=== PATIENT | male | born 1940 | race Caucasian/White ===

== ENCOUNTER 2018-11-02 08:41 | Inpatient (IN) ==
[2018-11-02] MEDS ORDERED: ONDANSETRON 4 MG/2 ML VIAL IV STA (09:06)
[2018-11-02] MEDS ORDERED: hydrALAZINE 20 MG/1 ML VIAL IV STA ×2 (09:06→10:02)
[2018-11-02 09:30] LABS: Basophils # 0.1 10*3/uL (0.0-0.2); Basophils % 0.5 % (0.0-0.8); Eosinophils # 0.1 10*3/uL (0.0-0.87); Eosinophils % 1.2 % (0.00-10.9); Hematocrit 43.9 VOL% (42.0-52.0); Hemoglobin 14.1 GM/DL (14.0-18.0); Immature Granulocytes % 0.6 %; Immature Granulocytes Absolute 0.06 #; Lymphocytes # 1.9 10*3/uL (1.4-4.0); Lymphocytes % 18.6 % (21.2-54.2); Mean Corpuscular HGB Conc 32.1 GM/DL (32-36); Mean Corpuscular Hemoglobin 26 PG (27-34); Mean Corpuscular Volume 81.9 FL (87-102); Mean Platelet Volume 10.6 FL (9.6-12.0); Monocytes # 0.8 10*3/uL (0.11-0.8); Monocytes % 7.5 % (1.7-12.7); Neutrophils # 7.4 10*3/uL (1.4-7.4); Neutrophils % 71.6 % (38.7-73.9); Platelet Count 177 T/CUMM (130-400); Red Blood Count 5.36 MC/CUMM (3.8-5.5); Red Cell Distribution Width 14.2 % (9.3-17.3); White Blood Count 10.3 T/CUMM (4-12)
[2018-11-02 09:35] LABS: INR 1.1; PT Patient Result 11.9 SECS; Partial Thromboplastin Time 28.9 SECS (0-40)
[2018-11-02 09:41] LABS: Apearance,Urine CLEAR (Clear); Bilirubin,Urine Negative (Negative); Blood, Urine Small mg/dL (Negative); Glucose,Urine (UA) Negative (Negative); Ketones,Urine Negative (Negative); Mucus,Urine Occasional /LPF (Occasional); Nitrite,Urine Negative (Negative); Protein,Urine 30 MG/DL; RBC,Urine 1 /HPF (0-4); Urine Color Yellow (Yellow); Urine Specific Gravity 1.006 (1.001-1.035); Urine Urobilinogen < 2.0 EU/DL (0.2-1.0); WBC,Urine <1 /HPF (0-6)
[2018-11-02 09:50] LABS: Alanine Aminotransferase 20 U/L (16-61); Albumin 3.7 G/DL (3.4-5.0); Alkaline Phosphatase 60 U/L (45-117); Aspartate Amino Transferase 14 U/L (0-37); Blood Urea Nitrogen 15 MG/DL (7-18); Calcium 8.3 MG/DL (8.5-10.1); Glucose 123 MG/DL (74-106); Osmolality,Calculated 282.3 MOS/KG (273-304); Potassium 3.6 MMOL/L (3.5-5.1); Sodium 141 MMOL/L (136-145); Total Protein 7.4 G/DL (6.4-8.3); Troponin I < 0.015 NG/ML (0.00-0.045)
[2018-11-02 09:56] LABS: Barbiturates Screen,Urine Negative (Negative); Benzodiazepines Screen,Urine Negative (Negative); Cannabinoid Screen,Urine Negative (Negative); Opiate Screen,Urine Negative (Negative); Phencyclidine Screen,Urine Negative (Negative)
[2018-11-02] MEDS ORDERED: MORPHINE 4 MG/1 ML VIAL IV PRN (10:45)
[2018-11-02] MEDS ORDERED: GLUCAGON 1 MG VIAL IM PRN (10:57)
[2018-11-02] MEDS ORDERED: DEXTROSE 50% 25 GM/50 ML VIAL IV PRN (10:57)
[2018-11-02] MEDS ORDERED: ENOXAPARIN 40 MG/0.4 ML SYRINGE SUBCUT SCH ×2 (11:00→12:00)
[2018-11-02] MEDS ORDERED: CLOPIDOGREL 75 MG TABLET PO SCH (11:00)
[2018-11-02 11:21] LABS: Risk Ratio 3.87; VLDL CHOLESTEROL 24.8 MG/DL
[2018-11-02] MEDS: INSULIN LISPRO 100 UNIT/ML SUBCUT SCH ×2 (15:41→16:36)
[2018-11-02] MEDS ORDERED: INFLUENZA VIRUS VACCINE 0.5 ML SYRINGE IM ONE (15:42)
[2018-11-02] MEDS: SODIUM CHLORIDE 0.9% 1,000 ML IV SCH (16:40)
[2018-11-02] MEDS: PANTOPRAZOLE 40 MG VIAL IV SCH (17:40)
[2018-11-02] MEDS: HEPARIN DRIP 25,000 UNITS/500 ML PREMIX IV SCH (17:56)
[2018-11-02] MEDS: ATORVASTATIN 40 MG TABLET PO SCH (20:04)
[2018-11-03] MEDS: SODIUM CHLORIDE 0.9% 1,000 ML IV SCH ×3 (00:27→16:48)
[2018-11-03] MEDS: METOPROLOL TARTRATE 5 MG/5 ML VIAL IV PRN ×2 (00:28→05:13)
[2018-11-03 01:00] LABS: Osmolality,Calculated 277.5 MOS/KG (273-304); Thyroid Stimulating Hormone 0.85 uIU/ml (0.358-3.74)
[2018-11-03 01:14] LABS: Basophils # 0.1 10*3/uL (0.0-0.2); Basophils % 0.4 % (0.0-0.8); Eosinophils % 0.3 % (0.00-10.9); Hematocrit 39.9 VOL% (42.0-52.0); Hemoglobin 13.1 GM/DL (14.0-18.0); Immature Granulocytes % 0.3 %; Immature Granulocytes Absolute 0.04 #; Lymphocytes # 2.2 10*3/uL (1.4-4.0); Lymphocytes % 19.5 % (21.2-54.2); Mean Corpuscular HGB Conc 32.8 GM/DL (32-36); Mean Corpuscular Hemoglobin 27 PG (27-34); Mean Corpuscular Volume 82.1 FL (87-102); Mean Platelet Volume 10.8 FL (9.6-12.0); Monocytes % 8.8 % (1.7-12.7); Neutrophils # 8.1 10*3/uL (1.4-7.4); Neutrophils % 70.7 % (38.7-73.9); Platelet Count 180 T/CUMM (130-400); Red Blood Count 4.86 MC/CUMM (3.8-5.5); Red Cell Distribution Width 14.4 % (9.3-17.3); White Blood Count 11.5 T/CUMM (4-12)
[2018-11-03 01:24] LABS: INR 1.1; PT Patient Result 12.2 SECS; Partial Thromboplastin Time 29.9 SECS (0-40)
[2018-11-03] MEDS ORDERED: MAGNESIUM SULF RIDER 2 GM in PREMIX 1 EACH IV PRN (01:24)
[2018-11-03] MEDS ORDERED: MAGNESIUM SULF RIDER 4 GM in PREMIX 1 EACH IV PRN (01:24)
[2018-11-03] MEDS: HEPARIN 5,000 UNIT/1 ML VIAL IV PRN ×2 (01:56→16:49)
[2018-11-03] MEDS ORDERED: POTASSIUM CHLORIDE INJ 50 MEQ in SODIUM CHLORIDE 0.9% 475 ML IV SCH (02:00)
[2018-11-03 06:19] LABS: INR 1.1
[2018-11-03 06:20] LABS: Partial Thromboplastin Time 42.5 SECS (0-40)
[2018-11-03] MEDS ORDERED: hydrALAZINE 20 MG/1 ML VIAL IV PRN (08:33)
[2018-11-03] MEDS ORDERED: SIMVASTATIN 40 MG TABLET PO SCH (09:00)
[2018-11-03] MEDS: PANTOPRAZOLE 40 MG VIAL IV SCH (09:15)
[2018-11-03] MEDS: INSULIN LISPRO 100 UNIT/ML SUBCUT SCH ×3 (09:41→17:23)
[2018-11-03] MEDS: CARVEDILOL 12.5 MG TABLET PO SCH ×2 (09:41→18:02)
[2018-11-03 12:31] LABS: INR 1.1; PT Patient Result 11.8 SECS; Partial Thromboplastin Time 35.7 SECS (0-40)
[2018-11-03] MEDS: HEPARIN DRIP 25,000 UNITS/500 ML PREMIX IV SCH (16:21)
[2018-11-03] MEDS: ATORVASTATIN 40 MG TABLET PO SCH (20:48)
[2018-11-04] MEDS: SODIUM CHLORIDE 0.9% 1,000 ML IV SCH ×3 (01:00→17:13)
[2018-11-04 08:28] LABS: Albumin 2.8 G/DL (3.4-5.0); Bilirubin,Total 1.4 MG/DL (0.2-1.0); Calcium 7.5 MG/DL (8.5-10.1); Osmolality,Calculated 287.3 MOS/KG (273-304); Potassium 3.2 MMOL/L (3.5-5.1); Total Protein 5.8 G/DL (6.4-8.3)
[2018-11-04] MEDS: CARVEDILOL 12.5 MG TABLET PO SCH ×2 (09:19→16:34)
[2018-11-04] MEDS: CLOPIDOGREL 75 MG TABLET PO SCH (09:19)
[2018-11-04] MEDS: PANTOPRAZOLE 40 MG VIAL IV SCH (09:20)
[2018-11-04] MEDS: INSULIN LISPRO 100 UNIT/ML SUBCUT SCH ×3 (10:20→16:41)
[2018-11-04] MEDS: HEPARIN 5,000 UNIT/1 ML VIAL IV PRN (13:48)
[2018-11-04] MEDS: HEPARIN DRIP 25,000 UNITS/500 ML PREMIX IV SCH (13:49)
[2018-11-04] MEDS: SCOPOLAMINE 1.5 MG PATCH TRANSDERM SCH (16:34)
[2018-11-04] MEDS: ATORVASTATIN 40 MG TABLET PO SCH (21:00)
[2018-11-05 01:31] LABS: Albumin 2.5 G/DL (3.4-5.0); Bilirubin,Total 1.5 MG/DL (0.2-1.0); Calcium 7.7 MG/DL (8.5-10.1); Osmolality,Calculated 290.1 MOS/KG (273-304); Potassium 3.2 MMOL/L (3.5-5.1); Prealbumin 10.7 MG/DL (20-40); Total Protein 6.1 G/DL (6.4-8.3)
[2018-11-05] MEDS ORDERED: POTASSIUM CHLORIDE INJ 40 MEQ in SODIUM CHLORIDE 0.9% 380 ML IV SCH (02:30)
[2018-11-05] MEDS: SODIUM CHLORIDE 0.9% 1,000 ML IV SCH ×2 (03:46→09:37)
[2018-11-05] MEDS: HEPARIN DRIP 25,000 UNITS/500 ML PREMIX IV SCH ×2 (05:10→21:59)
[2018-11-05] MEDS ORDERED: POTASSIUM PHOSPHATE 30 MMOL in SODIUM CHLORIDE 0.9% 250 ML IV ONE (08:00)
[2018-11-05] MEDS: INSULIN LISPRO 100 UNIT/ML SUBCUT SCH ×2 (08:49→19:58)
[2018-11-05] MEDS: CARVEDILOL 12.5 MG TABLET PO SCH ×3 (08:49→19:58)
[2018-11-05] MEDS: PANTOPRAZOLE 40 MG VIAL IV SCH (09:35)
[2018-11-05] MEDS: CLOPIDOGREL 75 MG TABLET PO SCH (09:35)
[2018-11-05] MEDS ORDERED: FUROSEMIDE 40 MG/4 ML VIAL IV ONE (16:55)
[2018-11-05] MEDS: ACETAMINOPHEN 325 MG TABLET PO PRN ×2 (17:06→19:59)
[2018-11-05] MEDS: PIPERACILLIN/TAZOBACTAM 3,375 MG in SODIUM CHLORIDE 0.9% 100 ML IV SCH (20:17)
[2018-11-05 20:18] LABS: Apearance,Urine CLEAR (Clear); Bacteria,Urine Occasional /HPF (Few); Bilirubin,Urine Negative (Negative); Blood, Urine Moderate mg/dL (Negative); Glucose,Urine (UA) Negative (Negative); Ketones,Urine Negative (Negative); Nitrite,Urine Negative (Negative); Protein,Urine Negative; RBC,Urine 28 /HPF (0-4); Urine Color Straw (Yellow); Urine Specific Gravity 1.005 (1.001-1.035); WBC,Urine 1 /HPF (0-6)
[2018-11-05] MEDS: ATORVASTATIN 40 MG TABLET PO SCH (21:57)
[2018-11-06] MEDS: PIPERACILLIN/TAZOBACTAM 3,375 MG in SODIUM CHLORIDE 0.9% 100 ML IV SCH ×3 (02:43→19:21)
[2018-11-06 05:00] LABS: Basophils % 0.4 % (0.0-0.8); Eosinophils % 0.1 % (0.00-10.9); Hematocrit 34.1 VOL% (42.0-52.0); Hemoglobin 10.8 GM/DL (14.0-18.0); Immature Granulocytes % 0.4 %; Immature Granulocytes Absolute 0.04 #; Lymphocytes # 1.2 10*3/uL (1.4-4.0); Lymphocytes % 12.6 % (21.2-54.2); Mean Corpuscular HGB Conc 31.7 GM/DL (32-36); Mean Corpuscular Hemoglobin 26 PG (27-34); Mean Corpuscular Volume 83.2 FL (87-102); Mean Platelet Volume 11.5 FL (9.6-12.0); Monocytes # 0.5 10*3/uL (0.11-0.8); Monocytes % 4.8 % (1.7-12.7); Neutrophils % 81.7 % (38.7-73.9); Platelet Count 124 T/CUMM (130-400); Red Cell Distribution Width 15.2 % (9.3-17.3); White Blood Count 9.8 T/CUMM (4-12)
[2018-11-06 05:31] LABS: Albumin 2.4 G/DL (3.4-5.0); Bilirubin,Total 1.8 MG/DL (0.2-1.0); Osmolality,Calculated 297.7 MOS/KG (273-304); Potassium 3.1 MMOL/L (3.5-5.1); Total Protein 6.6 G/DL (6.4-8.3)
[2018-11-06] MEDS: INSULIN LISPRO 100 UNIT/ML SUBCUT SCH ×3 (08:28→18:06)
[2018-11-06] MEDS: POTASSIUM CHLORIDE RIDER 10 MEQ in PREMIX 1 EACH IV PRN (08:43)
[2018-11-06] MEDS: CARVEDILOL 12.5 MG TABLET PO SCH ×2 (08:46→17:00)
[2018-11-06] MEDS: NICOTINE 21 MG/24 HR PATCH TRANSDERM SCH (09:59)
[2018-11-06] MEDS: ALBUTEROL/IPRATROPIUM 3 ML NEB RESP TX SCH ×3 (10:50→20:21)
[2018-11-06 11:56] LABS: ABG Base Excess 2.5 MMOL/L (-2.5-2.5); ABG HCO3 26.6 MMOL/L (20-26); ABG Oxygen Saturation 94.2 % (95-100); ABG PCO2 31.1 MM HG (35-48); ABG PH 7.512 (7.35-7.45); ABG PO2 64.8 MM HG (80-95); ABG TCO2 22.1 MMOL/L (23-27)
[2018-11-06] MEDS ORDERED: ACETAMINOPHEN 325 MG/10.15 ML UDCUP PO ONE (12:00)
[2018-11-06] MEDS: methylPREDNISolone SOD SUC 125 MG/2 ML VIAL IV SCH ×3 (12:02→23:43)
[2018-11-06 12:10] LABS: INR 1.2; PT Patient Result 12.7 SECS
[2018-11-06 12:14] LABS: Partial Thromboplastin Time 49.9 SECS (0-40)
[2018-11-06] MEDS ORDERED: FUROSEMIDE 40 MG/4 ML VIAL IV ONE (12:49)
[2018-11-06] MEDS: FUROSEMIDE 40 MG/4 ML VIAL IV SCH ×2 (13:00→21:42)
[2018-11-06] MEDS: HEPARIN DRIP 25,000 UNITS/500 ML PREMIX IV SCH ×2 (13:21→21:19)
[2018-11-06] MEDS: VANCOMYCIN INJ 1,500 MG in SODIUM CHLORIDE 0.9% 500 ML IV SCH (14:07)
[2018-11-06] MEDS: AMIODARONE 200 MG TABLET NG SCH ×2 (17:00→21:40)
[2018-11-06 20:58] LABS: INR 1.2; PT Patient Result 12.5 SECS
[2018-11-06 21:08] LABS: Partial Thromboplastin Time 49.3 SECS (0-40)
[2018-11-06] MEDS: ATORVASTATIN 40 MG TABLET PO SCH (21:42)
[2018-11-07] MEDS: ALBUTEROL/IPRATROPIUM 3 ML NEB RESP TX SCH ×4 (00:33→20:43)
[2018-11-07] MEDS: PIPERACILLIN/TAZOBACTAM 3,375 MG in SODIUM CHLORIDE 0.9% 100 ML IV SCH ×3 (02:14→17:22)
[2018-11-07 03:32] LABS: Basophils % 0.1 % (0.0-0.8); Hematocrit 36.7 VOL% (42.0-52.0); Immature Granulocytes % 0.4 %; Immature Granulocytes Absolute 0.04 #; Lymphocytes # 0.5 10*3/uL (1.4-4.0); Lymphocytes % 5.3 % (21.2-54.2); Mean Corpuscular HGB Conc 32.7 GM/DL (32-36); Mean Corpuscular Hemoglobin 26 PG (27-34); Mean Corpuscular Volume 80.8 FL (87-102); Mean Platelet Volume 11.6 FL (9.6-12.0); Monocytes # 0.2 10*3/uL (0.11-0.8); Monocytes % 2.5 % (1.7-12.7); Neutrophils # 8.2 10*3/uL (1.4-7.4); Neutrophils % 91.7 % (38.7-73.9); Platelet Count 150 T/CUMM (130-400); Red Blood Count 4.54 MC/CUMM (3.8-5.5); Red Cell Distribution Width 14.8 % (9.3-17.3); White Blood Count 8.9 T/CUMM (4-12)
[2018-11-07 03:33] LABS: Calcium 8.4 MG/DL (8.5-10.1); Osmolality,Calculated 297.1 MOS/KG (273-304); Potassium 2.8 MMOL/L (3.5-5.1)
[2018-11-07 03:37] LABS: Albumin 2.5 G/DL (3.4-5.0); Bilirubin,Total 1.5 MG/DL (0.2-1.0); Calcium 7.9 MG/DL (8.5-10.1); Potassium 2.8 MMOL/L (3.5-5.1); Total Protein 7.7 G/DL (6.4-8.3)
[2018-11-07 03:39] LABS: INR 1.1; PT Patient Result 12.1 SECS
[2018-11-07 03:46] LABS: Partial Thromboplastin Time 40.8 SECS (0-40)
[2018-11-07 04:17] LABS: Lymphocytes 4 % (20-55); Segmented Neutrophils 95 % (50-85); Total Cells Counted 100
[2018-11-07 04:18] LABS: Anisocytosis 1+; Ovalocytes Few; Platelet Estimate Adequate
[2018-11-07] MEDS: HEPARIN DRIP 25,000 UNITS/500 ML PREMIX IV SCH (04:50)
[2018-11-07] MEDS: POTASSIUM CHLORIDE RIDER 10 MEQ in PREMIX 1 EACH IV PRN ×3 (04:56→08:14)
[2018-11-07] MEDS: methylPREDNISolone SOD SUC 125 MG/2 ML VIAL IV SCH ×3 (06:35→17:22)
[2018-11-07] MEDS: SCOPOLAMINE 1.5 MG PATCH TRANSDERM SCH (08:16)
[2018-11-07] MEDS: NICOTINE 21 MG/24 HR PATCH TRANSDERM SCH (08:16)
[2018-11-07] MEDS: AMIODARONE 200 MG TABLET NG SCH ×2 (08:16→20:47)
[2018-11-07] MEDS: CARVEDILOL 12.5 MG TABLET PO SCH (08:16)
[2018-11-07] MEDS: INSULIN LISPRO 100 UNIT/ML SUBCUT SCH ×3 (08:17→17:22)
[2018-11-07] MEDS: FUROSEMIDE 40 MG/4 ML VIAL IV SCH ×2 (08:17→20:47)
[2018-11-07] MEDS: POTASSIUM CHLORIDE 20 MEQ/15 ML UDCUP PER TUBE PRN ×3 (09:20→14:29)
[2018-11-07] MEDS ORDERED: CARVEDILOL 6.25 MG TABLET PO ONE (10:17)
[2018-11-07 10:55] LABS: INR 1.1; PT Patient Result 11.6 SECS
[2018-11-07 11:10] LABS: Partial Thromboplastin Time 43.4 SECS (0-40)
[2018-11-07] MEDS: VANCOMYCIN INJ 1,500 MG in SODIUM CHLORIDE 0.9% 500 ML IV SCH (14:31)
[2018-11-07] MEDS: CARVEDILOL 25 MG TABLET PO SCH (20:47)
[2018-11-07] MEDS: ATORVASTATIN 40 MG TABLET PO SCH (20:47)
[2018-11-07] MEDS: ENOXAPARIN 100 MG/ML SYRINGE SUBCUT SCH (20:47)
[2018-11-07] MEDS ORDERED: APIXABAN 2.5 MG TABLET PO SCH (21:00)
[2018-11-08] MEDS: methylPREDNISolone SOD SUC 125 MG/2 ML VIAL IV SCH ×3 (00:02→12:06)
[2018-11-08] MEDS: POTASSIUM CHLORIDE 20 MEQ/15 ML UDCUP PER TUBE PRN ×5 (00:02→10:55)
[2018-11-08] MEDS: ALBUTEROL/IPRATROPIUM 3 ML NEB RESP TX SCH ×4 (01:01→18:00)
[2018-11-08] MEDS ORDERED: HALOPERIDOL 5 MG/ML AMP IV ONE (01:24)
[2018-11-08] MEDS: PIPERACILLIN/TAZOBACTAM 3,375 MG in SODIUM CHLORIDE 0.9% 100 ML IV SCH ×3 (02:11→17:07)
[2018-11-08 05:15] LABS: Basophils % 0.1 % (0.0-0.8); Hematocrit 37.1 VOL% (42.0-52.0); Hemoglobin 12.1 GM/DL (14.0-18.0); Immature Granulocytes % 0.6 %; Immature Granulocytes Absolute 0.09 #; Lymphocytes # 0.5 10*3/uL (1.4-4.0); Lymphocytes % 3.5 % (21.2-54.2); Mean Corpuscular HGB Conc 32.6 GM/DL (32-36); Mean Corpuscular Hemoglobin 26 PG (27-34); Mean Platelet Volume 11.6 FL (9.6-12.0); Monocytes # 0.6 10*3/uL (0.11-0.8); Neutrophils # 12.9 10*3/uL (1.4-7.4); Neutrophils % 91.8 % (38.7-73.9); Platelet Count 185 T/CUMM (130-400); Red Blood Count 4.58 MC/CUMM (3.8-5.5); Red Cell Distribution Width 14.8 % (9.3-17.3); White Blood Count 14.1 T/CUMM (4-12)
[2018-11-08 05:24] LABS: Calcium 8.9 MG/DL (8.5-10.1); Osmolality,Calculated 307.7 MOS/KG (273-304); Potassium 3.2 MMOL/L (3.5-5.1)
[2018-11-08 05:58] LABS: Hypochromasia 1+; Lymphocytes 1 % (20-55); Ovalocytes Slight; Platelet Estimate Adequate; Segmented Neutrophils 97 % (50-85); Total Cells Counted 100
[2018-11-08] MEDS: CARVEDILOL 25 MG TABLET PO SCH ×2 (08:05→20:35)
[2018-11-08] MEDS: AMIODARONE 200 MG TABLET NG SCH ×2 (08:05→20:34)
[2018-11-08] MEDS: NICOTINE 21 MG/24 HR PATCH TRANSDERM SCH (08:05)
[2018-11-08] MEDS: ENOXAPARIN 100 MG/ML SYRINGE SUBCUT SCH ×2 (08:06→20:34)
[2018-11-08] MEDS: INSULIN LISPRO 100 UNIT/ML SUBCUT SCH ×2 (08:57→12:06)
[2018-11-08] MEDS: VANCOMYCIN INJ 1,500 MG in SODIUM CHLORIDE 0.9% 500 ML IV SCH (14:51)
[2018-11-08] MEDS: INSULIN REGULAR 100 UNIT/ML SUBCUT SCH (17:18)
[2018-11-08] MEDS: methylPREDNISolone SOD SUC 40 MG/1 ML VIAL IV SCH (20:33)
[2018-11-08] MEDS: ACETAMINOPHEN 325 MG TABLET PO PRN (20:34)
[2018-11-08] MEDS: ATORVASTATIN 40 MG TABLET PO SCH (20:35)
[2018-11-09] MEDS: INSULIN REGULAR 100 UNIT/ML SUBCUT SCH ×4 (01:00→17:45)
[2018-11-09] MEDS: ALBUTEROL/IPRATROPIUM 3 ML NEB RESP TX SCH ×4 (01:02→22:05)
[2018-11-09] MEDS: PIPERACILLIN/TAZOBACTAM 3,375 MG in SODIUM CHLORIDE 0.9% 100 ML IV SCH ×3 (02:45→19:00)
[2018-11-09 05:24] LABS: Calcium 8.9 MG/DL (8.5-10.1); Osmolality,Calculated 313.1 MOS/KG (273-304); Potassium 3.7 MMOL/L (3.5-5.1)
[2018-11-09 05:33] LABS: Basophils % 0.1 % (0.0-0.8); Hematocrit 40.1 VOL% (42.0-52.0); Hemoglobin 12.7 GM/DL (14.0-18.0); Immature Granulocytes % 0.8 %; Immature Granulocytes Absolute 0.11 #; Lymphocytes # 0.7 10*3/uL (1.4-4.0); Lymphocytes % 5.2 % (21.2-54.2); Mean Corpuscular HGB Conc 31.7 GM/DL (32-36); Mean Corpuscular Hemoglobin 26 PG (27-34); Mean Corpuscular Volume 83.2 FL (87-102); Mean Platelet Volume 11.9 FL (9.6-12.0); Monocytes # 0.6 10*3/uL (0.11-0.8); Monocytes % 4.7 % (1.7-12.7); Neutrophils # 12.2 10*3/uL (1.4-7.4); Neutrophils % 89.2 % (38.7-73.9); Platelet Count 197 T/CUMM (130-400); Red Blood Count 4.82 MC/CUMM (3.8-5.5); White Blood Count 13.6 T/CUMM (4-12)
[2018-11-09] MEDS: POTASSIUM CHLORIDE 20 MEQ/15 ML UDCUP PER TUBE PRN (06:26)
[2018-11-09] MEDS ORDERED: CARVEDILOL 6.25 MG TABLET PO ONE (09:55)
[2018-11-09] MEDS: CARVEDILOL 25 MG TABLET PO SCH ×2 (10:20→20:58)
[2018-11-09] MEDS: NICOTINE 21 MG/24 HR PATCH TRANSDERM SCH (10:20)
[2018-11-09] MEDS: AMIODARONE 200 MG TABLET NG SCH ×2 (10:21→20:58)
[2018-11-09] MEDS: hydrALAZINE 25 MG TABLET NG SCH ×4 (10:21→20:58)
[2018-11-09] MEDS: methylPREDNISolone SOD SUC 40 MG/1 ML VIAL IV SCH ×2 (10:24→21:06)
[2018-11-09] MEDS: ENOXAPARIN 100 MG/ML SYRINGE SUBCUT SCH ×2 (10:26→21:06)
[2018-11-09] MEDS: hydrALAZINE 20 MG/1 ML VIAL IV PRN (10:28)
[2018-11-09] MEDS: VANCOMYCIN INJ 1,500 MG in SODIUM CHLORIDE 0.9% 500 ML IV SCH (16:26)
[2018-11-09] MEDS: ATORVASTATIN 40 MG TABLET PO SCH (20:58)
[2018-11-10] MEDS: HALOPERIDOL 5 MG/ML AMP IV PRN
[2018-11-10] MEDS: INSULIN REGULAR 100 UNIT/ML SUBCUT SCH ×4 (01:44→18:37)
[2018-11-10] MEDS: ALBUTEROL/IPRATROPIUM 3 ML NEB RESP TX SCH ×4 (02:02→19:19)
[2018-11-10] MEDS: PIPERACILLIN/TAZOBACTAM 3,375 MG in SODIUM CHLORIDE 0.9% 100 ML IV SCH ×3 (02:10→17:52)
[2018-11-10 04:28] LABS: Hematocrit 40.3 VOL% (42.0-52.0); Hemoglobin 12.8 GM/DL (14.0-18.0); Mean Corpuscular HGB Conc 31.8 GM/DL (32-36); Mean Corpuscular Hemoglobin 26 PG (27-34); Mean Corpuscular Volume 81.9 FL (87-102); Red Blood Count 4.92 MC/CUMM (3.8-5.5); Red Cell Distribution Width 14.8 % (9.3-17.3); White Blood Count 14.2 T/CUMM (4-12)
[2018-11-10 04:29] LABS: Basophils % 0.1 % (0.0-0.8); Immature Granulocytes % 1.3 %; Immature Granulocytes Absolute 0.18 #; Lymphocytes # 1.2 10*3/uL (1.4-4.0); Lymphocytes % 8.5 % (21.2-54.2); Mean Platelet Volume 11.2 FL (9.6-12.0); Neutrophils # 11.8 10*3/uL (1.4-7.4); Neutrophils % 83.1 % (38.7-73.9); Platelet Count 208 T/CUMM (130-400)
[2018-11-10 04:59] LABS: Albumin 2.7 G/DL (3.4-5.0); Bilirubin,Total 1.3 MG/DL (0.2-1.0); Calcium 8.2 MG/DL (8.5-10.1); Osmolality,Calculated 303.4 MOS/KG (273-304); Potassium 3.3 MMOL/L (3.5-5.1); Total Protein 6.5 G/DL (6.4-8.3)
[2018-11-10 05:11] LABS: Calcium 8.6 MG/DL (8.5-10.1); Osmolality,Calculated 299.7 MOS/KG (273-304); Potassium 3.3 MMOL/L (3.5-5.1)
[2018-11-10] MEDS: hydrALAZINE 20 MG/1 ML VIAL IV PRN (05:30)
[2018-11-10] MEDS: POTASSIUM CHLORIDE RIDER 10 MEQ in PREMIX 1 EACH IV PRN ×4 (05:40→09:23)
[2018-11-10] MEDS: methylPREDNISolone SOD SUC 40 MG/1 ML VIAL IV SCH ×2 (09:23→22:22)
[2018-11-10] MEDS: ENOXAPARIN 100 MG/ML SYRINGE SUBCUT SCH ×2 (09:23→22:22)
[2018-11-10] MEDS: NICOTINE 21 MG/24 HR PATCH TRANSDERM SCH (09:24)
[2018-11-10] MEDS: CARVEDILOL 25 MG TABLET PO SCH ×2 (09:25→22:16)
[2018-11-10] MEDS: AMIODARONE 200 MG TABLET NG SCH ×2 (09:25→22:16)
[2018-11-10] MEDS: hydrALAZINE 25 MG TABLET NG SCH ×4 (09:25→22:16)
[2018-11-10] MEDS: SCOPOLAMINE 1.5 MG PATCH TRANSDERM SCH (09:26)
[2018-11-10] MEDS: VANCOMYCIN INJ 1,250 MG in SODIUM CHLORIDE 0.9% 250 ML IV SCH (16:30)
[2018-11-10] MEDS: ATORVASTATIN 40 MG TABLET PO SCH (22:16)
[2018-11-11] MEDS: ALBUTEROL/IPRATROPIUM 3 ML NEB RESP TX SCH ×4 (00:45→20:17)
[2018-11-11] MEDS: INSULIN REGULAR 100 UNIT/ML SUBCUT SCH ×4 (00:48→18:44)
[2018-11-11] MEDS: hydrALAZINE 20 MG/1 ML VIAL IV PRN (01:50)
[2018-11-11] MEDS: PIPERACILLIN/TAZOBACTAM 3,375 MG in SODIUM CHLORIDE 0.9% 100 ML IV SCH (01:56)
[2018-11-11 04:09] LABS: Basophils % 0.2 % (0.0-0.8); Hematocrit 40.1 VOL% (42.0-52.0); Hemoglobin 12.6 GM/DL (14.0-18.0); Immature Granulocytes % 1.1 %; Immature Granulocytes Absolute 0.13 #; Lymphocytes # 0.9 10*3/uL (1.4-4.0); Lymphocytes % 7.8 % (21.2-54.2); Mean Corpuscular HGB Conc 31.4 GM/DL (32-36); Mean Corpuscular Hemoglobin 26 PG (27-34); Mean Corpuscular Volume 82.9 FL (87-102); Monocytes # 0.6 10*3/uL (0.11-0.8); Monocytes % 4.7 % (1.7-12.7); Neutrophils # 10.4 10*3/uL (1.4-7.4); Neutrophils % 86.2 % (38.7-73.9); Platelet Count 206 T/CUMM (130-400); Red Blood Count 4.84 MC/CUMM (3.8-5.5)
[2018-11-11 05:11] LABS: Albumin 2.4 G/DL (3.4-5.0); Bilirubin,Total 0.7 MG/DL (0.2-1.0); Calcium 8.3 MG/DL (8.5-10.1); Osmolality,Calculated 296.8 MOS/KG (273-304); Potassium 4.1 MMOL/L (3.5-5.1); Total Protein 6.4 G/DL (6.4-8.3)
[2018-11-11] MEDS: VANCOMYCIN INJ 1,250 MG in SODIUM CHLORIDE 0.9% 250 ML IV SCH (06:30)
[2018-11-11] MEDS ORDERED: ceFAZolin 1,000 MG in SYRINGE 1 EACH IV ONE (08:23)
[2018-11-11] MEDS: ENOXAPARIN 100 MG/ML SYRINGE SUBCUT SCH (08:40)
[2018-11-11] MEDS: methylPREDNISolone SOD SUC 40 MG/1 ML VIAL IV SCH ×2 (08:41→21:28)
[2018-11-11] MEDS: NICOTINE 21 MG/24 HR PATCH TRANSDERM SCH (08:42)
[2018-11-11] MEDS: hydrALAZINE 25 MG TABLET NG SCH ×4 (08:43→21:27)
[2018-11-11] MEDS: AMIODARONE 200 MG TABLET NG SCH ×2 (08:43→21:27)
[2018-11-11] MEDS: CARVEDILOL 25 MG TABLET PO SCH ×2 (08:43→21:27)
[2018-11-11] MEDS: ATORVASTATIN 40 MG TABLET PO SCH (21:27)
[2018-11-12] MEDS: ALBUTEROL/IPRATROPIUM 3 ML NEB RESP TX SCH ×4 (00:49→20:17)
[2018-11-12] MEDS: hydrALAZINE 20 MG/1 ML VIAL IV PRN (00:52)
[2018-11-12] MEDS: INSULIN REGULAR 100 UNIT/ML SUBCUT SCH ×4 (00:57→18:33)
[2018-11-12 04:57] LABS: Basophils % 0.2 % (0.0-0.8); Hematocrit 42.1 VOL% (42.0-52.0); Hemoglobin 13.7 GM/DL (14.0-18.0); Immature Granulocytes % 1.2 %; Immature Granulocytes Absolute 0.16 #; Lymphocytes # 0.7 10*3/uL (1.4-4.0); Lymphocytes % 5.5 % (21.2-54.2); Mean Corpuscular HGB Conc 32.5 GM/DL (32-36); Mean Corpuscular Hemoglobin 27 PG (27-34); Mean Corpuscular Volume 82.7 FL (87-102); Mean Platelet Volume 10.9 FL (9.6-12.0); Monocytes # 0.6 10*3/uL (0.11-0.8); Monocytes % 4.4 % (1.7-12.7); Neutrophils # 11.4 10*3/uL (1.4-7.4); Neutrophils % 88.7 % (38.7-73.9); Platelet Count 221 T/CUMM (130-400); Red Blood Count 5.09 MC/CUMM (3.8-5.5); Red Cell Distribution Width 14.8 % (9.3-17.3); White Blood Count 12.9 T/CUMM (4-12)
[2018-11-12 05:02] LABS: INR 1.2; PT Patient Result 12.7 SECS; Partial Thromboplastin Time 27.2 SECS (0-40)
[2018-11-12 05:10] LABS: Calcium 8.8 MG/DL (8.5-10.1); Osmolality,Calculated 299.8 MOS/KG (273-304); Potassium 3.8 MMOL/L (3.5-5.1)
[2018-11-12 05:14] LABS: Albumin 2.5 G/DL (3.4-5.0); Bilirubin,Total 0.7 MG/DL (0.2-1.0); Calcium 8.4 MG/DL (8.5-10.1); Osmolality,Calculated 299.8 MOS/KG (273-304); Potassium 3.8 MMOL/L (3.5-5.1)
[2018-11-12] MEDS: AMIODARONE 200 MG TABLET NG SCH ×2 (08:58→21:44)
[2018-11-12] MEDS: NICOTINE 21 MG/24 HR PATCH TRANSDERM SCH (08:58)
[2018-11-12] MEDS: CARVEDILOL 25 MG TABLET PO SCH ×2 (08:58→21:44)
[2018-11-12] MEDS: hydrALAZINE 25 MG TABLET NG SCH ×4 (08:58→21:44)
[2018-11-12] MEDS: methylPREDNISolone SOD SUC 40 MG/1 ML VIAL IV SCH (08:59)
[2018-11-12 11:52] LABS: Basophils % 0.1 % (0.0-0.8); Immature Granulocytes % 0.9 %; Immature Granulocytes Absolute 0.13 #; Lymphocytes # 0.7 10*3/uL (1.4-4.0); Lymphocytes % 4.7 % (21.2-54.2); Mean Corpuscular HGB Conc 31.8 GM/DL (32-36); Mean Corpuscular Hemoglobin 26 PG (27-34); Mean Corpuscular Volume 82.7 FL (87-102); Mean Platelet Volume 10.5 FL (9.6-12.0); Monocytes # 0.6 10*3/uL (0.11-0.8); Monocytes % 4.3 % (1.7-12.7); Neutrophils # 12.5 10*3/uL (1.4-7.4); Platelet Count 238 T/CUMM (130-400); Red Blood Count 5.32 MC/CUMM (3.8-5.5); Red Cell Distribution Width 15.1 % (9.3-17.3); White Blood Count 13.9 T/CUMM (4-12)
[2018-11-12 12:05] LABS: INR 1.2; PT Patient Result 12.9 SECS
[2018-11-12 12:55] LABS: Lymphocytes 4 % (20-55); Segmented Neutrophils 93 % (50-85); Total Cells Counted 100
[2018-11-12 12:57] LABS: Platelet Estimate Normal
[2018-11-12] MEDS: APIXABAN 5 MG TABLET PO SCH (21:44)
[2018-11-12] MEDS: ATORVASTATIN 40 MG TABLET PO SCH (21:44)
[2018-11-12] MEDS: LISINOPRIL 5 MG TABLET PO SCH (21:44)
[2018-11-13] MEDS: ALBUTEROL/IPRATROPIUM 3 ML NEB RESP TX SCH ×2 (00:44→06:50)
[2018-11-13] MEDS: INSULIN REGULAR 100 UNIT/ML SUBCUT SCH ×5 (00:58→23:55)
[2018-11-13] MEDS: HALOPERIDOL 5 MG/ML AMP IV PRN (01:02)
[2018-11-13 07:02] LABS: Basophils % 0.1 % (0.0-0.8); Eosinophils % 0.1 % (0.00-10.9); Hemoglobin 13.1 GM/DL (14.0-18.0); Immature Granulocytes Absolute 0.14 #; Lymphocytes # 1.9 10*3/uL (1.4-4.0); Lymphocytes % 14.4 % (21.2-54.2); Mean Corpuscular Hemoglobin 27 PG (27-34); Mean Corpuscular Volume 83.3 FL (87-102); Mean Platelet Volume 10.7 FL (9.6-12.0); Monocytes # 1.1 10*3/uL (0.11-0.8); Monocytes % 7.9 % (1.7-12.7); Neutrophils # 10.3 10*3/uL (1.4-7.4); Neutrophils % 76.5 % (38.7-73.9); Platelet Count 248 T/CUMM (130-400); Red Blood Count 4.92 MC/CUMM (3.8-5.5); Red Cell Distribution Width 15.1 % (9.3-17.3); White Blood Count 13.5 T/CUMM (4-12)
[2018-11-13 07:19] LABS: Calcium 8.5 MG/DL (8.5-10.1); Osmolality,Calculated 292.8 MOS/KG (273-304); Potassium 3.6 MMOL/L (3.5-5.1)
[2018-11-13] MEDS ORDERED: GLIMEPIRIDE 2 MG TABLET PO SCH ×2 (08:00→13:28)
[2018-11-13] MEDS: LISINOPRIL 5 MG TABLET PO SCH (11:00)
[2018-11-13] MEDS: AMIODARONE 200 MG TABLET NG SCH (11:00)
[2018-11-13] MEDS: CARVEDILOL 25 MG TABLET PO SCH ×2 (11:00→21:22)
[2018-11-13] MEDS: APIXABAN 5 MG TABLET PO SCH ×2 (11:00→21:22)
[2018-11-13] MEDS: hydrALAZINE 25 MG TABLET NG SCH ×4 (11:00→21:23)
[2018-11-13] MEDS ORDERED: ALBUTEROL/IPRATROPIUM 3 ML NEB RESP TX PRN (11:45)
[2018-11-13] MEDS ORDERED: LISINOPRIL 5 MG TABLET PO SCH (11:45)
[2018-11-13] MEDS: NICOTINE 21 MG/24 HR PATCH TRANSDERM SCH (11:50)
[2018-11-13] MEDS: amLODIPine 5 MG TABLET PO SCH (14:58)
[2018-11-13] MEDS: LISINOPRIL 20 MG TABLET PO SCH ×2 (14:58→21:20)
[2018-11-13] MEDS: AMIODARONE 200 MG TABLET PO SCH (21:21)
[2018-11-13] MEDS: hydrALAZINE 10 MG TABLET PO PRN (21:21)
[2018-11-13] MEDS: ATORVASTATIN 40 MG TABLET PO SCH (21:22)
[2018-11-14] MEDS: INSULIN REGULAR 100 UNIT/ML SUBCUT SCH ×2 (06:22→11:56)
[2018-11-14] MEDS ORDERED: NICOTINE 14 MG/24 HR PATCH TRANSDERM SCH (09:00)
[2018-11-14] MEDS: amLODIPine 5 MG TABLET PO SCH (09:39)
[2018-11-14] MEDS: CARVEDILOL 25 MG TABLET PO SCH (09:39)
[2018-11-14] MEDS: hydrALAZINE 10 MG TABLET PO PRN (09:39)
[2018-11-14] MEDS: LISINOPRIL 20 MG TABLET PO SCH (09:39)
[2018-11-14] MEDS: APIXABAN 5 MG TABLET PO SCH (09:40)
[2018-11-14] MEDS: AMIODARONE 200 MG TABLET PO SCH (09:40)
[2018-11-14] MEDS: hydrALAZINE 25 MG TABLET NG SCH (09:40)
[2018-11-14 12:28] VITALS: BP 118/67
[2018-11-16] MEDS ORDERED: AMIODARONE 200 MG TABLET PO SCH (09:00)
== END 2018-11-14 12:49 | DRG 64 ==
LOC: EDBD → EDUNIT# → N.ED 08:41 → SUATTDRO 10:46 → N.EDINP 10:46 → N.4E 14:21 → N.CC 11-06 17:59 → N.TELEN 11-09 13:57
PROVIDERS: ADMIT Internal Medicine; ATTEND Internal Medicine

== ENCOUNTER 2018-11-16 14:37 | Inpatient (IN) ==
[2018-11-16] MEDS ORDERED: SODIUM CHLORIDE 0.9% 500 ML IV STA (15:07)
[2018-11-16 15:48] LABS: Basophils % 0.1 % (0.0-0.8); Eosinophils # 0.1 10*3/uL (0.0-0.87); Eosinophils % 0.4 % (0.00-10.9); Hemoglobin 12.3 GM/DL (14.0-18.0); Immature Granulocytes % 1.1 %; Immature Granulocytes Absolute 0.16 #; Lymphocytes # 1.2 10*3/uL (1.4-4.0); Lymphocytes % 8.2 % (21.2-54.2); Mean Corpuscular HGB Conc 32.4 GM/DL (32-36); Mean Corpuscular Hemoglobin 27 PG (27-34); Mean Corpuscular Volume 82.4 FL (87-102); Mean Platelet Volume 10.8 FL (9.6-12.0); Monocytes # 1.1 10*3/uL (0.11-0.8); Monocytes % 8.1 % (1.7-12.7); Neutrophils # 11.5 10*3/uL (1.4-7.4); Neutrophils % 82.1 % (38.7-73.9); Platelet Count 243 T/CUMM (130-400); Red Blood Count 4.61 MC/CUMM (3.8-5.5); Red Cell Distribution Width 15.7 % (9.3-17.3)
[2018-11-16 16:00] LABS: INR 1.3; PT Patient Result 13.7 SECS; Partial Thromboplastin Time 28.5 SECS (0-40)
[2018-11-16 16:22] LABS: Apearance,Urine CLEAR (Clear); Bilirubin,Urine Negative (Negative); Blood, Urine Negative (Negative); Glucose,Urine (UA) Negative (Negative); Hyaline Casts,Urine 1 /LPF (0-3); Ketones,Urine Negative (Negative); Mucus,Urine Occasional /LPF (Occasional); Nitrite,Urine Negative (Negative); Protein,Urine Negative; RBC,Urine 2 /HPF (0-4); Squamous Epithelial Cell,Urine Occasional /HPF (0-10); Urine Color Yellow (Yellow); Urine Specific Gravity 1.018 (1.001-1.035); WBC,Urine 2 /HPF (0-6)
[2018-11-16 16:45] LABS: Alanine Aminotransferase 27 U/L (16-61); Albumin 2.3 G/DL (3.4-5.0); Alkaline Phosphatase 57 U/L (45-117); Aspartate Amino Transferase 17 U/L (0-37); Blood Urea Nitrogen 58 MG/DL (7-18); Calcium 8.5 MG/DL (8.5-10.1); Glucose 107 MG/DL (74-106); Potassium 3.8 MMOL/L (3.5-5.1); Sodium 143 MMOL/L (136-145); Total Protein 6.2 G/DL (6.4-8.3); Troponin I < 0.015 NG/ML (0.00-0.045)
[2018-11-16] MEDS ORDERED: SODIUM CHLORIDE 0.45% 1,000 ML IV ONE (17:11)
[2018-11-16] MEDS ORDERED: ONDANSETRON 4 MG/2 ML VIAL IV PRN (18:54)
[2018-11-16] MEDS ORDERED: traMADol 50 MG TABLET PO PRN (19:01)
[2018-11-16] MEDS ORDERED: ALBUTEROL/IPRATROPIUM 3 ML NEB RESP TX PRN (19:01)
[2018-11-16] MEDS ORDERED: DEXTROSE 50% 25 GM/50 ML VIAL IV PRN (19:01)
[2018-11-16] MEDS ORDERED: GLUCAGON 1 MG VIAL IM PRN (19:01)
[2018-11-16] MEDS ORDERED: ALUMINUM/MAGNES/SIMETH MAX STR 30 ML UDCUP PO PRN (19:01)
[2018-11-16] MEDS: SODIUM CHLORIDE 0.9% 1,000 ML IV SCH (21:05)
[2018-11-16] MEDS: ATORVASTATIN 80 MG TABLET PO SCH (21:20)
[2018-11-16] MEDS: LISINOPRIL 20 MG TABLET PO SCH (21:20)
[2018-11-16] MEDS: APIXABAN 5 MG TABLET PO SCH (21:20)
[2018-11-17 02:35] LABS: Basophils % 0.1 % (0.0-0.8); Eosinophils # 0.1 10*3/uL (0.0-0.87); Eosinophils % 0.8 % (0.00-10.9); Hematocrit 34.6 VOL% (42.0-52.0); Hemoglobin 11.2 GM/DL (14.0-18.0); Immature Granulocytes % 0.9 %; Lymphocytes # 1.5 10*3/uL (1.4-4.0); Mean Corpuscular HGB Conc 32.4 GM/DL (32-36); Mean Corpuscular Hemoglobin 27 PG (27-34); Mean Corpuscular Volume 82.4 FL (87-102); Mean Platelet Volume 10.8 FL (9.6-12.0); Monocytes # 0.9 10*3/uL (0.11-0.8); Monocytes % 7.8 % (1.7-12.7); Neutrophils # 9.1 10*3/uL (1.4-7.4); Neutrophils % 77.4 % (38.7-73.9); Platelet Count 213 T/CUMM (130-400); Red Cell Distribution Width 15.7 % (9.3-17.3); White Blood Count 11.8 T/CUMM (4-12)
[2018-11-17 03:03] LABS: Albumin 2.1 G/DL (3.4-5.0); Bilirubin,Total 0.9 MG/DL (0.2-1.0); Calcium 8.3 MG/DL (8.5-10.1); Potassium 3.4 MMOL/L (3.5-5.1); Thyroid Stimulating Hormone 1.25 uIU/ml (0.358-3.74)
[2018-11-17] MEDS ORDERED: amLODIPine 5 MG TABLET PO SCH (09:00)
[2018-11-17] MEDS: NICOTINE 14 MG/24 HR PATCH TRANSDERM SCH (09:37)
[2018-11-17] MEDS: POTASSIUM CHLORIDE 20 MEQ TABLET PO SCH (09:38)
[2018-11-17] MEDS: LISINOPRIL 20 MG TABLET PO SCH ×2 (09:38→20:35)
[2018-11-17] MEDS: PANTOPRAZOLE 40 MG TABLET PO SCH (09:38)
[2018-11-17] MEDS: APIXABAN 5 MG TABLET PO SCH ×2 (09:39→20:35)
[2018-11-17] MEDS: ATORVASTATIN 80 MG TABLET PO SCH (20:35)
[2018-11-17] MEDS: SODIUM CHLORIDE 0.9% 1,000 ML IV SCH ×2 (23:51)
[2018-11-18 05:13] LABS: Basophils % 0.1 % (0.0-0.8); Eosinophils % 0.3 % (0.00-10.9); Hematocrit 37.7 VOL% (42.0-52.0); Hemoglobin 11.9 GM/DL (14.0-18.0); Immature Granulocytes % 0.8 %; Immature Granulocytes Absolute 0.11 #; Lymphocytes # 1.3 10*3/uL (1.4-4.0); Lymphocytes % 9.4 % (21.2-54.2); Mean Corpuscular HGB Conc 31.6 GM/DL (32-36); Mean Corpuscular Hemoglobin 26 PG (27-34); Mean Corpuscular Volume 83.4 FL (87-102); Mean Platelet Volume 11.3 FL (9.6-12.0); Monocytes # 1.3 10*3/uL (0.11-0.8); Monocytes % 9.9 % (1.7-12.7); Neutrophils # 10.7 10*3/uL (1.4-7.4); Neutrophils % 79.5 % (38.7-73.9); Platelet Count 236 T/CUMM (130-400); Red Blood Count 4.52 MC/CUMM (3.8-5.5); Red Cell Distribution Width 15.9 % (9.3-17.3); White Blood Count 13.5 T/CUMM (4-12)
[2018-11-18 05:44] LABS: Calcium 8.3 MG/DL (8.5-10.1); Osmolality,Calculated 294.8 MOS/KG (273-304); Potassium 3.7 MMOL/L (3.5-5.1)
[2018-11-18 05:48] LABS: Albumin 2.2 G/DL (3.4-5.0); Calcium 8.4 MG/DL (8.5-10.1); Potassium 3.7 MMOL/L (3.5-5.1); Total Protein 6.5 G/DL (6.4-8.3)
[2018-11-18] MEDS: LISINOPRIL 20 MG TABLET PO SCH ×2 (10:11→20:40)
[2018-11-18] MEDS: NICOTINE 14 MG/24 HR PATCH TRANSDERM SCH (10:11)
[2018-11-18] MEDS: PANTOPRAZOLE 40 MG TABLET PO SCH (10:11)
[2018-11-18] MEDS: APIXABAN 5 MG TABLET PO SCH ×2 (10:12→20:40)
[2018-11-18] MEDS: POTASSIUM CHLORIDE 20 MEQ TABLET PO SCH (10:12)
[2018-11-18] MEDS: amLODIPine 10 MG TABLET PO SCH (10:12)
[2018-11-18] MEDS: PIPERACILLIN/TAZOBACTAM 3,375 MG in SODIUM CHLORIDE 0.9% 100 ML IV SCH (16:43)
[2018-11-18 16:54] LABS: Apearance,Urine CLEAR (Clear); Bacteria,Urine Many /HPF (Few); Bilirubin,Urine Negative (Negative); Blood, Urine Negative (Negative); Glucose,Urine (UA) Negative (Negative); Ketones,Urine Negative (Negative); Mucus,Urine Occasional /LPF (Occasional); Nitrite,Urine Negative (Negative); Protein,Urine Negative; RBC,Urine 1 /HPF (0-4); Squamous Epithelial Cell,Urine Occasional /HPF (0-10); Urine Color Yellow (Yellow); Urine Specific Gravity 1.017 (1.001-1.035); WBC,Urine 1 /HPF (0-6)
[2018-11-18] MEDS: ACETAMINOPHEN 325 MG TABLET PO PRN (20:39)
[2018-11-18] MEDS: ATORVASTATIN 80 MG TABLET PO SCH (20:40)
[2018-11-19] MEDS: PIPERACILLIN/TAZOBACTAM 3,375 MG in SODIUM CHLORIDE 0.9% 100 ML IV SCH ×2 (01:45→09:03)
[2018-11-19 05:48] LABS: Basophils % 0.2 % (0.0-0.8); Eosinophils # 0.1 10*3/uL (0.0-0.87); Eosinophils % 0.6 % (0.00-10.9); Hematocrit 33.1 VOL% (42.0-52.0); Hemoglobin 10.3 GM/DL (14.0-18.0); Immature Granulocytes % 0.6 %; Immature Granulocytes Absolute 0.07 #; Lymphocytes # 1.3 10*3/uL (1.4-4.0); Lymphocytes % 10.6 % (21.2-54.2); Mean Corpuscular HGB Conc 31.1 GM/DL (32-36); Mean Corpuscular Hemoglobin 26 PG (27-34); Mean Corpuscular Volume 83.2 FL (87-102); Mean Platelet Volume 11.3 FL (9.6-12.0); Monocytes # 1.2 10*3/uL (0.11-0.8); Monocytes % 10.1 % (1.7-12.7); Neutrophils # 9.4 10*3/uL (1.4-7.4); Neutrophils % 77.9 % (38.7-73.9); Platelet Count 205 T/CUMM (130-400); Red Blood Count 3.98 MC/CUMM (3.8-5.5); Red Cell Distribution Width 15.9 % (9.3-17.3); White Blood Count 12.1 T/CUMM (4-12)
[2018-11-19 06:09] LABS: Albumin 1.9 G/DL (3.4-5.0); Bilirubin,Total 1.4 MG/DL (0.2-1.0); Calcium 7.7 MG/DL (8.5-10.1); Osmolality,Calculated 293.7 MOS/KG (273-304); Potassium 3.7 MMOL/L (3.5-5.1); Total Protein 5.1 G/DL (6.4-8.3)
[2018-11-19] MEDS ORDERED: VANCOMYCIN INJ 1,000 MG in SODIUM CHLORIDE 0.9% 250 ML IV SCH (09:00)
[2018-11-19] MEDS: APIXABAN 5 MG TABLET PO SCH ×2 (10:12→21:22)
[2018-11-19] MEDS: LISINOPRIL 20 MG TABLET PO SCH ×2 (10:12→21:22)
[2018-11-19] MEDS: VANCOMYCIN INJ 1,500 MG in SODIUM CHLORIDE 0.9% 500 ML IV SCH ×2 (10:13→21:20)
[2018-11-19] MEDS: amLODIPine 10 MG TABLET PO SCH (10:13)
[2018-11-19] MEDS: NICOTINE 14 MG/24 HR PATCH TRANSDERM SCH (10:13)
[2018-11-19] MEDS: PANTOPRAZOLE 40 MG TABLET PO SCH (10:13)
[2018-11-19] MEDS: POTASSIUM CHLORIDE 20 MEQ TABLET PO SCH (10:13)
[2018-11-19] MEDS: CEFEPIME 1,000 MG in SYRINGE 1 EACH IV SCH ×2 (16:00→23:26)
[2018-11-19] MEDS: ACYCLOVIR INJ 750 MG in SODIUM CHLORIDE 0.9% 250 ML IV SCH ×2 (16:00→23:27)
[2018-11-19] MEDS: ATORVASTATIN 80 MG TABLET PO SCH (21:22)
[2018-11-19] MEDS: ACETAMINOPHEN 325 MG TABLET PO PRN (23:26)
[2018-11-20 06:44] LABS: Osmolality,Calculated 290.8 MOS/KG (273-304); Potassium 3.3 MMOL/L (3.5-5.1)
[2018-11-20] MEDS ORDERED: MAGNESIUM SULF RIDER 4 GM in PREMIX 1 EACH IV PRN (08:28)
[2018-11-20] MEDS ORDERED: MAGNESIUM SULF RIDER 2 GM in PREMIX 1 EACH IV PRN (08:28)
[2018-11-20] MEDS: CEFEPIME 1,000 MG in SYRINGE 1 EACH IV SCH ×2 (10:10→16:02)
[2018-11-20] MEDS: ACYCLOVIR INJ 750 MG in SODIUM CHLORIDE 0.9% 250 ML IV SCH ×2 (10:10→16:55)
[2018-11-20] MEDS: APIXABAN 5 MG TABLET PO SCH ×2 (10:11→19:59)
[2018-11-20] MEDS: PANTOPRAZOLE 40 MG TABLET PO SCH (10:11)
[2018-11-20] MEDS: amLODIPine 10 MG TABLET PO SCH (10:11)
[2018-11-20] MEDS: LISINOPRIL 20 MG TABLET PO SCH ×2 (10:11→19:59)
[2018-11-20] MEDS: NICOTINE 14 MG/24 HR PATCH TRANSDERM SCH (10:12)
[2018-11-20] MEDS: POTASSIUM CHLORIDE 20 MEQ TABLET PO SCH (10:12)
[2018-11-20] MEDS: VANCOMYCIN INJ 1,500 MG in SODIUM CHLORIDE 0.9% 500 ML IV SCH ×2 (11:24→23:49)
[2018-11-20] MEDS: POTASSIUM CHLORIDE RIDER 10 MEQ in PREMIX 1 EACH IV PRN ×4 (17:59→22:48)
[2018-11-20] MEDS: ATORVASTATIN 80 MG TABLET PO SCH (19:59)
[2018-11-21] MEDS: CEFEPIME 1,000 MG in SYRINGE 1 EACH IV SCH ×3 (03:27→21:20)
[2018-11-21] MEDS: ACYCLOVIR INJ 750 MG in SODIUM CHLORIDE 0.9% 250 ML IV SCH ×3 (03:28→21:31)
[2018-11-21] MEDS: LANSOPRAZOLE ODT 30 MG TABLET PO SCH (08:32)
[2018-11-21] MEDS: amLODIPine 10 MG TABLET PO SCH (08:32)
[2018-11-21] MEDS: LISINOPRIL 20 MG TABLET PO SCH ×2 (08:32→21:32)
[2018-11-21] MEDS: APIXABAN 5 MG TABLET PO SCH ×2 (08:33→21:32)
[2018-11-21] MEDS: POTASSIUM CHLORIDE 20 MEQ/15 ML UDCUP PO SCH (08:33)
[2018-11-21] MEDS: NICOTINE 14 MG/24 HR PATCH TRANSDERM SCH (08:33)
[2018-11-21] MEDS: VANCOMYCIN INJ 1,500 MG in SODIUM CHLORIDE 0.9% 500 ML IV SCH (11:40)
[2018-11-21] MEDS: ATORVASTATIN 80 MG TABLET PO SCH (21:32)
[2018-11-22] MEDS: VANCOMYCIN INJ 1,500 MG in SODIUM CHLORIDE 0.9% 500 ML IV SCH (00:32)
[2018-11-22] MEDS: CEFEPIME 1,000 MG in SYRINGE 1 EACH IV SCH (05:30)
[2018-11-22] MEDS: ACYCLOVIR INJ 750 MG in SODIUM CHLORIDE 0.9% 250 ML IV SCH (05:36)
[2018-11-22] MEDS: amLODIPine 10 MG TABLET PO SCH (10:36)
[2018-11-22] MEDS: POTASSIUM CHLORIDE 20 MEQ/15 ML UDCUP PO SCH (10:36)
[2018-11-22] MEDS: NICOTINE 14 MG/24 HR PATCH TRANSDERM SCH (10:36)
[2018-11-22] MEDS: LANSOPRAZOLE ODT 30 MG TABLET PO SCH (10:36)
[2018-11-22] MEDS: LISINOPRIL 20 MG TABLET PO SCH ×2 (10:36→20:20)
[2018-11-22] MEDS: APIXABAN 5 MG TABLET PO SCH ×2 (10:36→20:21)
[2018-11-22] MEDS ORDERED: LINEZOLID 600 MG TABLET PO SCH (11:00)
[2018-11-22] MEDS ORDERED: VANCOMYCIN INJ 1,500 MG in SODIUM CHLORIDE 0.9% 500 ML IV SCH (18:00)
[2018-11-22] MEDS: CIPROFLOXACIN 500 MG TABLET PO SCH (20:20)
[2018-11-22] MEDS: ATORVASTATIN 80 MG TABLET PO SCH (20:21)
[2018-11-23 05:40] LABS: Basophils % 0.3 % (0.0-0.8); Eosinophils # 0.1 10*3/uL (0.0-0.87); Hematocrit 31.9 VOL% (42.0-52.0); Hemoglobin 10.3 GM/DL (14.0-18.0); Immature Granulocytes % 0.3 %; Immature Granulocytes Absolute 0.03 #; Lymphocytes # 1.1 10*3/uL (1.4-4.0); Lymphocytes % 11.3 % (21.2-54.2); Mean Corpuscular HGB Conc 32.3 GM/DL (32-36); Mean Corpuscular Hemoglobin 26 PG (27-34); Mean Corpuscular Volume 81.6 FL (87-102); Mean Platelet Volume 11.1 FL (9.6-12.0); Monocytes # 0.7 10*3/uL (0.11-0.8); Monocytes % 7.3 % (1.7-12.7); Neutrophils # 7.8 10*3/uL (1.4-7.4); Neutrophils % 79.8 % (38.7-73.9); Platelet Count 160 T/CUMM (130-400); Red Blood Count 3.91 MC/CUMM (3.8-5.5); Red Cell Distribution Width 16.1 % (9.3-17.3); White Blood Count 9.7 T/CUMM (4-12)
[2018-11-23 06:51] LABS: Calcium 8.5 MG/DL (8.5-10.1); Osmolality,Calculated 288.1 MOS/KG (273-304); Potassium 3.4 MMOL/L (3.5-5.1)
[2018-11-23] MEDS: POTASSIUM CHLORIDE 20 MEQ/15 ML UDCUP PO SCH (09:19)
[2018-11-23] MEDS: NICOTINE 14 MG/24 HR PATCH TRANSDERM SCH (09:20)
[2018-11-23] MEDS: amLODIPine 10 MG TABLET PO SCH (09:20)
[2018-11-23] MEDS: APIXABAN 5 MG TABLET PO SCH (09:20)
[2018-11-23] MEDS: CIPROFLOXACIN 500 MG TABLET PO SCH (09:20)
[2018-11-23] MEDS: LISINOPRIL 20 MG TABLET PO SCH (09:20)
[2018-11-23] MEDS: LANSOPRAZOLE ODT 30 MG TABLET PO SCH (09:20)
[2018-11-23] MEDS: POTASSIUM CHLORIDE RIDER 10 MEQ in PREMIX 1 EACH IV PRN ×3 (09:21→11:59)
[2018-11-23] MEDS ORDERED: COLCHICINE 0.6 MG TABLET PO SCH (11:30)
[2018-11-23 11:45] VITALS: BP 120/66
[2018-11-23] MEDS ORDERED: TUBERCULIN SKIN TEST 0.1 ML SYRINGE INTRADERM ONE (11:55)
== END 2018-11-23 14:20 | DRG 97 ==
LOC: EDBD → EDUNIT# → N.ED 14:37 → SUATTDRO 18:07 → N.EDINP 18:07 → N.2E 19:26
PROVIDERS: ADMIT Internal Medicine; ATTEND Internal Medicine

== ENCOUNTER 2019-02-26 10:29 | Observation (INO) ==
[2019-02-26] MEDS ORDERED: ONDANSETRON 4 MG/2 ML VIAL IV STA (10:45)
[2019-02-26 12:44] LABS: Basophils # 0.1 10*3/uL (0.0-0.2); Basophils % 1.1 % (0.0-0.8); Eosinophils # 0.1 10*3/uL (0.0-0.87); Eosinophils % 0.9 % (0.00-10.9); Hematocrit 35.6 VOL% (42.0-52.0); Immature Granulocytes % 0.4 %; Immature Granulocytes Absolute 0.03 #; Lymphocytes # 1.6 10*3/uL (1.4-4.0); Lymphocytes % 20.8 % (21.2-54.2); Mean Corpuscular HGB Conc 30.9 GM/DL (32-36); Mean Corpuscular Hemoglobin 27 PG (27-34); Mean Corpuscular Volume 88.3 FL (87-102); Mean Platelet Volume 10.1 FL (9.6-12.0); Monocytes # 0.4 10*3/uL (0.11-0.8); Monocytes % 5.4 % (1.7-12.7); Neutrophils # 5.4 10*3/uL (1.4-7.4); Neutrophils % 71.4 % (38.7-73.9); Platelet Count 293 T/CUMM (130-400); Red Blood Count 4.03 MC/CUMM (3.8-5.5); White Blood Count 7.6 T/CUMM (4-12)
[2019-02-26 12:53] LABS: INR 1.1; PT Patient Result 11.5 SECS; Partial Thromboplastin Time 27.9 SECS (0-40)
[2019-02-26 13:10] LABS: Albumin 2.9 G/DL (3.4-5.0); Bilirubin,Total 0.7 MG/DL (0.2-1.0); Calcium 8.7 MG/DL (8.5-10.1); Osmolality,Calculated 278.8 MOS/KG (273-304); Potassium 4.8 MMOL/L (3.5-5.1); Total Protein 7.3 G/DL (6.4-8.3)
[2019-02-26] MEDS ORDERED: SODIUM CHLORIDE 0.9% 1,000 ML IV STA (13:21)
[2019-02-26] MEDS ORDERED: ACETAMINOPHEN 325 MG TABLET PO PRN (13:26)
[2019-02-26] MEDS ORDERED: ONDANSETRON 4 MG/2 ML VIAL IV PRN (13:26)
[2019-02-26] MEDS ORDERED: PROMETHAZINE 25 MG/1 ML VIAL IM PRN (13:26)
[2019-02-26] MEDS ORDERED: ENOXAPARIN 40 MG/0.4 ML SYRINGE SUBCUT SCH (13:30)
[2019-02-26] MEDS ORDERED: DEXTROSE 50% 25 GM/50 ML VIAL IV PRN (13:32)
[2019-02-26] MEDS ORDERED: GLUCAGON 1 MG VIAL IM PRN (13:32)
[2019-02-26 14:14] LABS: Thyroid Stimulating Hormone 2.53 uIU/ml (0.358-3.74)
[2019-02-26 14:38] LABS: Apearance,Urine CLEAR (Clear); Bilirubin,Urine Negative (Negative); Blood, Urine Negative (Negative); Glucose,Urine (UA) Negative (Negative); Ketones,Urine Negative (Negative); Mucus,Urine Occasional /LPF (Occasional); Nitrite,Urine Negative (Negative); Protein,Urine Negative; RBC,Urine <1 /HPF (0-4); Urine Color Yellow (Yellow); Urine Urobilinogen < 2.0 EU/DL (0.2-1.0)
[2019-02-26] MEDS: SODIUM CHLORIDE 0.9% 1,000 ML IV SCH (17:30)
[2019-02-26] MEDS: INSULIN LISPRO 100 UNIT/ML SUBCUT SCH ×2 (17:30→20:58)
[2019-02-26] MEDS ORDERED: ATORVASTATIN 80 MG TABLET PO SCH (21:00)
[2019-02-26] MEDS: APIXABAN 5 MG TABLET PO SCH (21:00)
[2019-02-26] MEDS: hydrALAZINE 25 MG TABLET PO SCH (21:00)
[2019-02-27] MEDS: SODIUM CHLORIDE 0.9% 1,000 ML IV SCH (04:25)
[2019-02-27 04:26] LABS: Basophils # 0.1 10*3/uL (0.0-0.2); Basophils % 1.1 % (0.0-0.8); Eosinophils # 0.2 10*3/uL (0.0-0.87); Eosinophils % 2.4 % (0.00-10.9); Hematocrit 32.3 VOL% (42.0-52.0); Hemoglobin 9.9 GM/DL (14.0-18.0); Immature Granulocytes % 0.4 %; Immature Granulocytes Absolute 0.03 #; Lymphocytes # 2.2 10*3/uL (1.4-4.0); Mean Corpuscular HGB Conc 30.7 GM/DL (32-36); Mean Corpuscular Hemoglobin 27 PG (27-34); Mean Corpuscular Volume 88.3 FL (87-102); Mean Platelet Volume 10.9 FL (9.6-12.0); Monocytes # 0.6 10*3/uL (0.11-0.8); Monocytes % 7.1 % (1.7-12.7); Neutrophils # 4.9 10*3/uL (1.4-7.4); Platelet Count 255 T/CUMM (130-400); Red Blood Count 3.66 MC/CUMM (3.8-5.5); White Blood Count 7.9 T/CUMM (4-12)
[2019-02-27 04:55] LABS: Calcium 8.5 MG/DL (8.5-10.1); Osmolality,Calculated 283.3 MOS/KG (273-304); Potassium 4.5 MMOL/L (3.5-5.1)
[2019-02-27] MEDS ORDERED: GLIMEPIRIDE 2 MG TABLET PO SCH (08:00)
[2019-02-27] MEDS: INSULIN LISPRO 100 UNIT/ML SUBCUT SCH ×2 (09:07→13:40)
[2019-02-27] MEDS: APIXABAN 5 MG TABLET PO SCH (09:08)
[2019-02-27] MEDS: hydrALAZINE 25 MG TABLET PO SCH ×2 (09:08→13:45)
[2019-02-27] MEDS ORDERED: COLLAGENASE OINT 30 GM TUBE TOP SCH (14:30)
[2019-02-27 16:16] VITALS: BP 148/96
== END 2019-02-27 16:45 | disposition home health service (06) ==
LOC: EDBD → EDUNIT# → N.ED 10:29 → N.EDINP 10:29 → N.2E 16:49
PROVIDERS: ADMIT Internal Medicine; ATTEND Internal Medicine

== ENCOUNTER 2019-04-15 17:46 | Inpatient (IN) ==
[2019-04-15] MEDS ORDERED: ONDANSETRON 4 MG/2 ML VIAL IV STA (21:33)
[2019-04-15] MEDS ORDERED: SODIUM CHLORIDE 0.9% 1,000 ML IV STA (21:33)
[2019-04-15 22:48] LABS: Basophils # 0.1 10*3/uL (0.0-0.2); Basophils % 0.5 % (0.0-0.8); Eosinophils % 0.3 % (0.00-10.9); Hematocrit 38.3 VOL% (42.0-52.0); Hemoglobin 12.2 GM/DL (14.0-18.0); Immature Granulocytes % 0.8 %; Lymphocytes # 1.8 10*3/uL (1.4-4.0); Lymphocytes % 14.9 % (21.2-54.2); Mean Corpuscular HGB Conc 31.9 GM/DL (32-36); Mean Corpuscular Volume 84.9 FL (87-102); Mean Platelet Volume 9.6 FL (9.6-12.0); Monocytes % 8.7 % (1.7-12.7); Neutrophils % 74.8 % (38.7-73.9); Platelet Count 325 T/CUMM (130-400); Red Blood Count 4.51 MC/CUMM (3.8-5.5)
[2019-04-15 23:10] LABS: Albumin 2.9 G/DL (3.4-5.0); Bilirubin,Total 0.7 MG/DL (0.2-1.0); Osmolality,Calculated 279.2 MOS/KG (273-304); Total Protein 6.9 G/DL (6.4-8.3)
[2019-04-15 23:11] LABS: Troponin I < 0.015 NG/ML (0.00-0.045)
[2019-04-16 00:02] LABS: Apearance,Urine Slightly Hazy (Clear); Bacteria,Urine Many /HPF (Few); Bilirubin,Urine Negative (Negative); Blood, Urine Negative (Negative); Glucose,Urine (UA) Negative (Negative); Hyaline Casts,Urine 23 /LPF (0-3); Ketones,Urine Negative (Negative); Mucus,Urine Occasional /LPF (Occasional); Nitrite,Urine Negative (Negative); Protein,Urine Negative; Urine Color Amber (Yellow); Urine Specific Gravity 1.017 (1.001-1.035); Urine Urobilinogen < 2.0 EU/DL (0.2-1.0); WBC,Urine 1 /HPF (0-6)
[2019-04-16] MEDS ORDERED: GLUCAGON 1 MG VIAL IM PRN (01:22)
[2019-04-16] MEDS ORDERED: DEXTROSE 50% 25 GM/50 ML VIAL IV PRN (01:22)
[2019-04-16] MEDS ORDERED: ONDANSETRON 4 MG/2 ML VIAL IV PRN (01:22)
[2019-04-16] MEDS ORDERED: ACETAMINOPHEN 325 MG TABLET PO PRN (01:22)
[2019-04-16] MEDS: SODIUM CHLORIDE 0.9% 1,000 ML IV SCH ×3 (03:45→15:54)
[2019-04-16 07:15] LABS: Basophils % 0.4 % (0.0-0.8); Eosinophils # 0.1 10*3/uL (0.0-0.87); Eosinophils % 0.9 % (0.00-10.9); Hematocrit 33.4 VOL% (42.0-52.0); Hemoglobin 10.7 GM/DL (14.0-18.0); Immature Granulocytes % 0.9 %; Immature Granulocytes Absolute 0.09 #; Lymphocytes # 1.1 10*3/uL (1.4-4.0); Lymphocytes % 10.7 % (21.2-54.2); Mean Corpuscular Volume 84.8 FL (87-102); Mean Platelet Volume 9.6 FL (9.6-12.0); Neutrophils % 79.1 % (38.7-73.9); Platelet Count 268 T/CUMM (130-400); Red Blood Count 3.94 MC/CUMM (3.8-5.5); Red Cell Distribution Width 16.9 % (9.3-17.3)
[2019-04-16] MEDS ORDERED: INSULIN REGULAR 100 UNIT/ML SUBCUT SCH (07:30)
[2019-04-16 07:40] LABS: Band Neutrophils 10 % (0-10); Eosinophils 1 % (0-10); Hypochromasia 1+; Lymphocytes 14 % (20-55); Ovalocytes Slight; Platelet Estimate Adequate; Segmented Neutrophils 62 % (50-85); Total Cells Counted 100
[2019-04-16 08:00] LABS: Calcium 8.4 MG/DL (8.5-10.1); Osmolality,Calculated 284.5 MOS/KG (273-304)
[2019-04-16] MEDS ORDERED: hydrALAZINE 25 MG TABLET PO SCH (09:00)
[2019-04-16] MEDS: APIXABAN 5 MG TABLET PO SCH ×2 (09:08→23:10)
[2019-04-16] MEDS: FAMOTIDINE 20 MG TABLET PO SCH ×2 (09:08→23:09)
[2019-04-16] MEDS: DILTIAZEM 30 MG TABLET PO SCH ×3 (09:09→23:08)
[2019-04-16] MEDS ORDERED: MAGNESIUM SULF RIDER 2 GM in PREMIX 1 EACH IV PRN (09:27)
[2019-04-16] MEDS ORDERED: MAGNESIUM SULF RIDER 4 GM in PREMIX 1 EACH IV PRN (09:27)
[2019-04-16 09:53] LABS: Troponin I < 0.015 NG/ML (0.00-0.045)
[2019-04-16] MEDS: ASCORBIC ACID 500 MG TABLET PO SCH ×2 (10:31→23:10)
[2019-04-16] MEDS: cefTRIAXone 1,000 MG in SYRINGE 1 EACH IV SCH (15:40)
[2019-04-16] MEDS: COLLAGENASE OINT 30 GM TUBE TOP SCH (15:40)
[2019-04-16 18:51] LABS: Troponin I < 0.015 NG/ML (0.00-0.045)
[2019-04-16] MEDS: ATORVASTATIN 80 MG TABLET PO SCH (23:10)
[2019-04-16] MEDS: levETIRAcetam 500 MG TABLET PO SCH (23:10)
[2019-04-17] MEDS: SODIUM CHLORIDE 0.9% 1,000 ML IV SCH ×3 (00:01→20:23)
[2019-04-17 05:50] LABS: Basophils % 0.3 % (0.0-0.8); Eosinophils # 0.1 10*3/uL (0.0-0.87); Eosinophils % 0.6 % (0.00-10.9); Hematocrit 30.2 VOL% (42.0-52.0); Hemoglobin 9.6 GM/DL (14.0-18.0); Immature Granulocytes % 0.8 %; Immature Granulocytes Absolute 0.08 #; Lymphocytes # 1.2 10*3/uL (1.4-4.0); Lymphocytes % 11.3 % (21.2-54.2); Mean Corpuscular HGB Conc 31.8 GM/DL (32-36); Mean Corpuscular Volume 84.6 FL (87-102); Mean Platelet Volume 10.3 FL (9.6-12.0); Monocytes % 7.5 % (1.7-12.7); Neutrophils % 79.5 % (38.7-73.9); Platelet Count 260 T/CUMM (130-400); Red Blood Count 3.57 MC/CUMM (3.8-5.5); Red Cell Distribution Width 16.9 % (9.3-17.3); White Blood Count 10.2 T/CUMM (4-12)
[2019-04-17 06:01] LABS: Risk Ratio 2.87; VLDL CHOLESTEROL 10.4 MG/DL
[2019-04-17 06:16] LABS: Calcium 7.7 MG/DL (8.5-10.1); Osmolality,Calculated 283.4 MOS/KG (273-304)
[2019-04-17 06:21] LABS: Band Neutrophils 4 % (0-10); Eosinophils 1 % (0-10); Lymphocytes 9 % (20-55); Segmented Neutrophils 75 % (50-85); Total Cells Counted 100
[2019-04-17 06:22] LABS: Platelet Estimate Normal; Polychromasia Few
[2019-04-17] MEDS: DILTIAZEM 30 MG TABLET PO SCH ×3 (07:08→21:09)
[2019-04-17] MEDS: ASCORBIC ACID 500 MG TABLET PO SCH ×2 (09:14→20:22)
[2019-04-17] MEDS: APIXABAN 5 MG TABLET PO SCH ×2 (09:14→20:22)
[2019-04-17] MEDS: FAMOTIDINE 20 MG TABLET PO SCH ×2 (09:14→20:23)
[2019-04-17] MEDS: levETIRAcetam 500 MG TABLET PO SCH ×2 (09:15→20:22)
[2019-04-17] MEDS: FLUCONAZOLE 200 MG TABLET PO SCH (09:15)
[2019-04-17] MEDS: POTASSIUM CHLORIDE 20 MEQ TABLET PO PRN ×3 (09:15→13:40)
[2019-04-17] MEDS ORDERED: MAGNESIUM SULF RIDER 2 GM in PREMIX 1 EACH IV ONE (12:14)
[2019-04-17] MEDS: cefTRIAXone 1,000 MG in SYRINGE 1 EACH IV SCH (15:10)
[2019-04-17] MEDS: COLLAGENASE OINT 30 GM TUBE TOP SCH (15:25)
[2019-04-17] MEDS: ATORVASTATIN 80 MG TABLET PO SCH (20:22)
[2019-04-18] MEDS: SODIUM CHLORIDE 0.9% 1,000 ML IV SCH ×3 (01:30→16:02)
[2019-04-18 05:02] LABS: Basophils # 0.1 10*3/uL (0.0-0.2); Basophils % 0.5 % (0.0-0.8); Eosinophils # 0.1 10*3/uL (0.0-0.87); Eosinophils % 0.8 % (0.00-10.9); Hematocrit 34.7 VOL% (42.0-52.0); Hemoglobin 10.8 GM/DL (14.0-18.0); Immature Granulocytes % 1.3 %; Immature Granulocytes Absolute 0.17 #; Lymphocytes # 1.8 10*3/uL (1.4-4.0); Lymphocytes % 13.5 % (21.2-54.2); Mean Corpuscular HGB Conc 31.1 GM/DL (32-36); Mean Corpuscular Volume 85.7 FL (87-102); Mean Platelet Volume 10.1 FL (9.6-12.0); Monocytes % 7.1 % (1.7-12.7); Neutrophils % 76.8 % (38.7-73.9); Platelet Count 282 T/CUMM (130-400); Red Blood Count 4.05 MC/CUMM (3.8-5.5); Red Cell Distribution Width 17.2 % (9.3-17.3); White Blood Count 13.3 T/CUMM (4-12)
[2019-04-18 05:27] LABS: Calcium 7.8 MG/DL (8.5-10.1); Osmolality,Calculated 280.4 MOS/KG (273-304)
[2019-04-18] MEDS: DILTIAZEM 30 MG TABLET PO SCH (06:02)
[2019-04-18] MEDS: FLUCONAZOLE 200 MG TABLET PO SCH (09:34)
[2019-04-18] MEDS: ASCORBIC ACID 500 MG TABLET PO SCH ×2 (09:35→22:25)
[2019-04-18] MEDS: COLLAGENASE OINT 30 GM TUBE TOP SCH (09:35)
[2019-04-18] MEDS: APIXABAN 5 MG TABLET PO SCH ×2 (09:35→22:26)
[2019-04-18] MEDS: FAMOTIDINE 20 MG TABLET PO SCH ×2 (09:35→22:26)
[2019-04-18] MEDS: levETIRAcetam 500 MG TABLET PO SCH ×2 (09:35→22:26)
[2019-04-18] MEDS: VANCOMYCIN 50 MG/ML 60 ML/BOTTLE PO SCH ×2 (12:29→17:10)
[2019-04-18] MEDS: DILTIAZEM 60 MG TABLET PO SCH ×2 (12:29→22:22)
[2019-04-18] MEDS: cefTRIAXone 1,000 MG in SYRINGE 1 EACH IV SCH (16:01)
[2019-04-18] MEDS: ATORVASTATIN 80 MG TABLET PO SCH (22:26)
[2019-04-19] MEDS: VANCOMYCIN 50 MG/ML 60 ML/BOTTLE PO SCH ×4 (00:28→17:37)
[2019-04-19] MEDS: DILTIAZEM 60 MG TABLET PO SCH (06:10)
[2019-04-19] MEDS: SODIUM CHLORIDE 0.9% 1,000 ML IV SCH ×2 (06:12→16:33)
[2019-04-19 06:53] LABS: Basophils # 0.1 10*3/uL (0.0-0.2); Basophils % 0.6 % (0.0-0.8); Eosinophils # 0.1 10*3/uL (0.0-0.87); Eosinophils % 0.8 % (0.00-10.9); Hemoglobin 12.2 GM/DL (14.0-18.0); Immature Granulocytes % 1.8 %; Immature Granulocytes Absolute 0.18 #; Lymphocytes # 1.9 10*3/uL (1.4-4.0); Lymphocytes % 18.7 % (21.2-54.2); Mean Corpuscular HGB Conc 30.5 GM/DL (32-36); Mean Corpuscular Volume 86.4 FL (87-102); Mean Platelet Volume 10.6 FL (9.6-12.0); Monocytes % 6.2 % (1.7-12.7); Neutrophils % 71.9 % (38.7-73.9); Platelet Count 254 T/CUMM (130-400); Red Blood Count 4.63 MC/CUMM (3.8-5.5); Red Cell Distribution Width 17.2 % (9.3-17.3); White Blood Count 9.9 T/CUMM (4-12)
[2019-04-19 07:21] LABS: Calcium 7.8 MG/DL (8.5-10.1); Osmolality,Calculated 282.3 MOS/KG (273-304)
[2019-04-19] MEDS: APIXABAN 5 MG TABLET PO SCH ×2 (08:19→22:27)
[2019-04-19] MEDS: ASCORBIC ACID 500 MG TABLET PO SCH ×2 (08:19→22:28)
[2019-04-19] MEDS: levETIRAcetam 500 MG TABLET PO SCH ×2 (08:19→22:27)
[2019-04-19] MEDS: FAMOTIDINE 20 MG TABLET PO SCH ×2 (08:19→22:28)
[2019-04-19] MEDS: FLUCONAZOLE 200 MG TABLET PO SCH (08:20)
[2019-04-19] MEDS: COLLAGENASE OINT 30 GM TUBE TOP SCH (08:25)
[2019-04-19] MEDS: DILTIAZEM CD 120 MG CAPSULE PO SCH ×2 (09:45→22:36)
[2019-04-19] MEDS: cefTRIAXone 1,000 MG in SYRINGE 1 EACH IV SCH (16:30)
[2019-04-19] MEDS: ATORVASTATIN 80 MG TABLET PO SCH (22:30)
[2019-04-20 04:17] LABS: Basophils # 0.1 10*3/uL (0.0-0.2); Basophils % 0.5 % (0.0-0.8); Eosinophils # 0.1 10*3/uL (0.0-0.87); Eosinophils % 1.1 % (0.00-10.9); Hematocrit 36.5 VOL% (42.0-52.0); Hemoglobin 11.4 GM/DL (14.0-18.0); Immature Granulocytes % 1.7 %; Immature Granulocytes Absolute 0.16 #; Lymphocytes # 2.4 10*3/uL (1.4-4.0); Lymphocytes % 25.5 % (21.2-54.2); Mean Corpuscular HGB Conc 31.2 GM/DL (32-36); Mean Corpuscular Volume 85.5 FL (87-102); Mean Platelet Volume 9.1 FL (9.6-12.0); Monocytes % 6.3 % (1.7-12.7); Neutrophils % 64.9 % (38.7-73.9); Platelet Count 269 T/CUMM (130-400); Red Blood Count 4.27 MC/CUMM (3.8-5.5); Red Cell Distribution Width 17.1 % (9.3-17.3); White Blood Count 9.3 T/CUMM (4-12)
[2019-04-20 04:46] LABS: Calcium 7.7 MG/DL (8.5-10.1); Osmolality,Calculated 280.3 MOS/KG (273-304)
[2019-04-20] MEDS: VANCOMYCIN 50 MG/ML 60 ML/BOTTLE PO SCH ×3 (05:26→11:41)
[2019-04-20] MEDS: ASCORBIC ACID 500 MG TABLET PO SCH (09:58)
[2019-04-20] MEDS: DILTIAZEM CD 120 MG CAPSULE PO SCH (09:59)
[2019-04-20] MEDS: FLUCONAZOLE 200 MG TABLET PO SCH (09:59)
[2019-04-20] MEDS: FAMOTIDINE 20 MG TABLET PO SCH (09:59)
[2019-04-20] MEDS: APIXABAN 5 MG TABLET PO SCH (10:00)
[2019-04-20] MEDS: levETIRAcetam 500 MG TABLET PO SCH (10:00)
[2019-04-20] MEDS: COLLAGENASE OINT 30 GM TUBE TOP SCH (10:07)
[2019-04-20 12:01] VITALS: BP 103/75
== END 2019-04-20 14:00 | disposition home health service (06) | DRG 309 ==
LOC: N.ED 17:46 → SUATTDRO 04-16 01:12 → N.EDINP 04-16 02:00 → N.TELES 04-16 02:02 → N.TELEN 04-17 17:38
PROVIDERS: ADMIT Internal Medicine; ATTEND Internal Medicine